=== PATIENT | female | born 1975 | race Caucasian/White ===

== ENCOUNTER 2018-01-14 14:08 | Emergency (ER) | payer BC ==
[2018-01-14 15:02] VITALS: BP 139/99
[2018-01-14] MEDS ORDERED: Ketorolac 60 MG/2 ML SDV IM ONE (15:35)
--- NOTE | 2018-01-14 15:37 | EDM.PDOC ---
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 Happened at home. History of back pain. Onset: Today Onset Date: 01/14/18 Onset Time: 11:00 Duration: Improving Location: Reports: Back Quality: Reports: Dull, Sharp (with movement) Severity: Moderate Improves with: Reports: Rest Worsens with: Reports: Movement Context: Reports: Trauma Associated Symptoms: Reports: No Other Symptoms - Related Data Allergies Allergy/AdvReac Type Severity Reaction Status Date / Time adhesive Allergy Rash Verified 01/14/18 15:08 codeine Allergy Itching Verified 01/14/18 15:12 gabapentin Allergy Edema Verified 01/14/18 15:12 hydromorphone [From Dilaudid] Allergy Itching Verified 01/14/18 15:12 Penicillins Allergy Rash Verified 01/14/18 15:08 pentazocine Allergy Other Verified 01/14/18 15:08 Ohfkahk-Stm-Dil Reductase Allergy Rash Verified 01/14/18 15:08 Inhibitor trimethoprim Allergy Other Verified 01/14/18 15:08 venom-honey bee Allergy Anaphylactic Verified 01/14/18 15:08 [bee venom (honey bee)] Shock atorvastatin AdvReac Muscle Verified 01/14/18 15:08 Weakness simvastatin AdvReac Muscle Verified 01/14/18 15:08 Weakness trichloroacetic acid AdvReac Muscle Verified 01/14/18 15:08 Weakness Home Meds: Home Meds Levothyroxine Sodium 125 mcg PO DAILY 01/24/13 [History] Zolpidem [Ambien] 5 - 10 mg PO DAILY 01/24/13 [History] Ibuprofen 800 mg PO QID 03/18/13 [History] Cholecalciferol (Vitamin D3) [Vitamin D3] 1,000 unit PO BID 05/26/14 [History] Cyanocobalamin (Vitamin B-12) [Vitamin B-12] 1,000 mcg PO DAILY 05/26/14 [ History] Cyclobenzaprine [Flexeril] 10 mg PO TID 05/26/14 [History] EPINEPHrine [Epipen] 0.3 mg IM ASDIRECTED 05/26/14 [History] Levonorgestrel-Ethin Estradiol [Levonor-Eth Estrad 0.15-0.03] 1 each PO DAILY [History] Multivitamin with Minerals [Multiple Vitamin] 1 each PO BID 05/26/14 [History] Vitamin B Complex [B Complex] 1 drp PO BID 05/28/14 [History] Amitriptyline [Elavil] 01/14/18 [History] FLUoxetine [PROzac] 01/14/18 [History] busPIRone [Buspar] 01/14/18 [History] Past Medical History HEENT History: Reports: Impaired Vision Other HEENT History: Dentures Cardiovascular History: Reports: High Cholesterol, Hypertension Respiratory History: Reports: Asthma Genitourinary History: Reports: Renal Calculus WEIGH BOSS History: Reports: Other WEIGH BOSS History: ablation Musculoskeletal History: Reports: Arthritis, Fibromyalgia Psychiatric History: Reports: Depression Endocrine/Metabolic History: Reports: Hypothyroidism Other Dermatologic History: Lipoma removal x 2 - Infectious Disease History Infectious Disease History: Reports: Chicken Pox - Past Surgical History GI Surgical History: Reports: Bariatric Procedure, Hernia Repair/Other Social & Family History - Family History Cardiac: Reports: Blood Clots/VTE/DVT, High Cholesterol, Hypertension, [place] Respiratory: Reports: COPD, Sleep Apnea Musculoskeletal: Reports: Fibromyalgia Neurological: Reports: Migraines Psychiatric: Reports: Anxiety, Depression Endocrine/Metabolic: Reports: Diabetes, type II, Hypothyroidism Oncologic: Reports: Lung, Renal, Thyroid - Tobacco Use Smoking Status *Q: Never Smoker - Living Situation & Occupation Living situation: Reports: Single Occupation: Employed ED ROS GENERAL - Review of Systems Review Of Systems: See Below Constitutional: Reports: No Symptoms HEENT: Reports: No Symptoms Respiratory: Reports: No Symptoms Cardiovascular: Reports: No Symptoms Endocrine: Reports: No Symptoms GI/Abdominal: Reports: No Symptoms Musculoskeletal: Reports: Back Pain Skin: Reports: No Symptoms Neurological: Reports: No Symptoms Psychiatric: Reports: No Symptoms ED EXAM,LOWER BACK PAIN/INJURY - Physical Exam Exam: See Below Exam Limited By: No Limitations General Appearance: Alert, WD/WN, No Apparent Distress Ears: Normal External Exam, Normal Canal, Hearing Grossly Normal, Normal TMs Nose: Normal Inspection, Normal Mucosa, No Blood Throat/Mouth: Normal Inspection, Normal Lips, Normal Teeth, Normal Gums, Normal Oropharynx, Normal Voice, No Airway Compromise Head: Atraumatic, Normocephalic Neck: Normal Inspection, Supple, Non-Tender, Full Range of Motion Respiratory/Chest: No Respiratory Distress, Lungs Clear, Normal Breath Sounds, No Accessory Muscle Use, Chest Non-Tender Cardiovascular: Normal Peripheral Pulses, Regular Rate, Rhythm, No Edema, No Gallop, No JVD, No Murmur, No Rub GI/Abdominal: Normal Bowel Sounds, Soft, Non-Tender, No Organomegaly, No Distention, No Abnormal Bruit, No Mass Back Exam: Normal Inspection, Full Range of Motion, Other (pain with palpation to left lower lumber and SI region) Extremities: Normal Inspection, Normal Range of Motion, Non-Tender, No Pedal Edema, Normal Capillary Refill Neurological: Alert, Normal Mood/Affect, Normal Dorsiflexion, CN II-XII Intact, Normal Plantar Flexion, Normal Gait, Normal Reflexes, No Motor/Sensory Deficits , Oriented x 3 Psychiatric: Tearful Skin Exam: Warm, Dry, Intact, Normal Color, No Rash Course - Vital Signs Last Recorded V/S: Last Vital Signs Temp 97.6 F 01/14/18 15:20 Pulse 103 H 01/14/18 15:20 Resp 17 01/14/18 15:20 BP 139/99 H 01/14/18 15:20 Pulse Ox 96 01/14/18 15:20 - Orders/Labs/Meds Orders: Active Orders 24 hr Category Date Time Status Lumbar Spine 2 or 3V [CR] Stat Exams 01/14/18 15:36 Taken Meds: Medications Discontinued Medications Generic Name Dose Route Start Last Admin Trade Name David PRN Reason Stop Dose Admin Ketorolac Tromethamine 60 mg 01/14/18 15:35 01/14/18 15:44 Toradol IM 01/14/18 15:36 60 mg ONETIME ONE Administration Departure - Departure Time of Disposition: 16:06 Disposition: Home, Self-Care 01 Condition: Good Clinical Impression: Low back pain Qualifiers: Chronicity: acute Back pain laterality: left Sciatica presence: with sciatica Sciatica laterality: sciatica of left side Qualified Code(s): M54.42 - Lumbago with sciatica, left side - Discharge Information *PRESCRIPTION DRUG MONITORING PROGRAM REVIEWED*: Yes *COPY OF PRESCRIPTION DRUG MONITORING REPORT IN PATIENT JOSEY: Yes Instructions: Back Pain, Adult Referrals: Izzy Strauss CNM [Primary Care Provider] - Forms: ED Department Discharge Additional Instructions: To use her Flexeril 10mg three times a day as needed. May use Ibuprofen 800mg TID as needed for pain. Continue ice or heat to area. Gentle stretching. Followup with her back specialist if pain worsening. Pt does have Dilaudid at home she can use if pain not improving. - Problem List & Annotations (1) Low back pain SNOMED Code(s): 204805607 Code(s): M54.5 - LOW BACK PAIN Status: Acute Priority: Medium Current Visit: Yes Qualifiers: Chronicity: acute Back pain laterality: left Sciatica presence: with sciatica Sciatica laterality: sciatica of left side Qualified Code(s): M54.42 - Lumbago with sciatica, left side - My Orders Last 24 Hours: My Active Orders 01/14/18 15:36 Lumbar Spine 2 or 3V [CR] Stat - Assessment/Plan Last 24 Hours: My Active Orders 01/14/18 15:36 Lumbar Spine 2 or 3V [CR] Stat
--- NOTE | 2018-01-15 11:06 | CR ---
Lumbar Spine 2 or 3V CLINICAL HISTORY: Pain, fall FINDINGS: The vertebral body heights are maintained. There are rudimentary ribs the on the lowest rib -bearing vertebrae. There is a transitional lumbosacral segment. IMPRESSION: No fracture or subluxation
== END 2018-01-14 16:19 | disposition home or self-care (01) ==
LOC: JP.ED 14:08
DX: M54.42 Lumbago with sciatica, left side (principal); E78.00 Pure hypercholesterolemia, unspecified; I10 Essential (primary) hypertension; J45.909 Unspecified asthma, uncomplicated; F32.9 Major depressive disorder, single episode, unspecified; E03.9 Hypothyroidism, unspecified; Z88.5 Allergy status to narcotic agent; Z88.0 Allergy status to penicillin; Z79.899 Other long term (current) drug therapy; W01.0XXA Fall on same level from slipping, tripping and stumbling without subsequent striking against object, initial encounter
CPT/HCPCS: 72100; 96372; 99284; J1885

== ENCOUNTER 2018-05-31 09:55 | Emergency (ER) | payer BC ==
[2018-05-31] MEDS ORDERED: Ketorolac 60 MG/2 ML SDV IM ONE (10:19)
[2018-05-31] MEDS ORDERED: LORazepam 1 MG Tab PO ONE (10:19)
--- NOTE | 2018-05-31 10:22 | EDM.PDOC ---
ED HPI GENERAL MEDICAL PROBLEM - General Chief Complaint: Back Pain or Injury Stated Complaint: BACK WENT OUT Time Seen by Provider: 05/31/18 10:16 Source of Information: Reports: Patient, RN Notes Reviewed History Limitations: Reports: No Limitations - History of Present Illness INITIAL COMMENTS - FREE TEXT/NARRATIVE: 42-year-old female presents to the emergency department today with complaint of low back pain, she recently had bent over to pick something up sudden onset of back pain predominately on the left she does have a history of bulging disks status post surgery about one year ago. She denies any loss of bowel or bladder no numbness and tingling in the feet Left Lower Lumbar Pain Score (Numeric/FACES): 5 - Related Data Allergies Allergy/AdvReac Type Severity Reaction Status Date / Time adhesive Allergy Rash Verified 01/14/18 15:08 codeine Allergy Itching Verified 01/14/18 15:12 gabapentin Allergy Edema Verified 01/14/18 15:12 hydromorphone [From Dilaudid] Allergy Itching Verified 01/14/18 15:12 Penicillins Allergy Rash Verified 01/14/18 15:08 pentazocine Allergy Other Verified 01/14/18 15:08 Mxqiglk-Rja-Xsz Reductase Allergy Rash Verified 01/14/18 15:08 Inhibitor trimethoprim Allergy Other Verified 01/14/18 15:08 venom-honey bee Allergy Anaphylactic Verified 01/14/18 15:08 [bee venom (honey bee)] Shock atorvastatin AdvReac Muscle Verified 01/14/18 15:08 Weakness simvastatin AdvReac Muscle Verified 01/14/18 15:08 Weakness trichloroacetic acid AdvReac Muscle Verified 01/14/18 15:08 Weakness Home Meds: Home Meds Levothyroxine Sodium 125 mcg PO DAILY 01/24/13 [History] Zolpidem [Ambien] 5 - 10 mg PO DAILY 01/24/13 [History] Ibuprofen 800 mg PO QID 03/18/13 [History] Cholecalciferol (Vitamin D3) [Vitamin D3] 1,000 unit PO BID 05/26/14 [History] Cyanocobalamin (Vitamin B-12) [Vitamin B-12] 1,000 mcg PO DAILY 05/26/14 [ History] Cyclobenzaprine [Flexeril] 10 mg PO TID 05/26/14 [History] EPINEPHrine [Epipen] 0.3 mg IM ASDIRECTED 05/26/14 [History] Levonorgestrel-Ethin Estradiol [Levonor-Eth Estrad 0.15-0.03] 1 each PO DAILY [History] Multivitamin with Minerals [Multiple Vitamin] 1 each PO BID 05/26/14 [History] Vitamin B Complex [B Complex] 1 drp PO BID 05/28/14 [History] Amitriptyline [Elavil] 01/14/18 [History] FLUoxetine [PROzac] 01/14/18 [History] busPIRone [Buspar] 01/14/18 [History] Past Medical History HEENT History: Reports: Impaired Vision Other HEENT History: Dentures Cardiovascular History: Reports: High Cholesterol, Hypertension Respiratory History: Reports: Asthma Genitourinary History: Reports: Renal Calculus ACCOUNT SUPPORT ASSOCIATE History: Reports: Other ACCOUNT SUPPORT ASSOCIATE History: ablation Musculoskeletal History: Reports: Arthritis, Fibromyalgia Psychiatric History: Reports: Depression Endocrine/Metabolic History: Reports: Hypothyroidism Other Dermatologic History: Lipoma removal x 2 - Infectious Disease History Infectious Disease History: Reports: Chicken Pox - Past Surgical History GI Surgical History: Reports: Bariatric Procedure, Hernia Repair/Other Musculoskeletal Surgical History: Reports: Other (See Below) Other Musculoskeletal Surgeries/Procedures:: back surgery for bulging disc in Social & Family History - Family History Cardiac: Reports: Blood Clots/VTE/DVT, High Cholesterol, Hypertension, [place] Respiratory: Reports: COPD, Sleep Apnea Musculoskeletal: Reports: Fibromyalgia Neurological: Reports: Migraines Psychiatric: Reports: Anxiety, Depression Endocrine/Metabolic: Reports: Diabetes, type II, Hypothyroidism Oncologic: Reports: Lung, Renal, Thyroid - Tobacco Use Smoking Status *Q: Never Smoker - Caffeine Use Caffeine Use: Reports: Coffee - Living Situation & Occupation Living situation: Reports: Single Occupation: Employed ED ROS GENERAL - Review of Systems Review Of Systems: See Below Constitutional: Reports: No Symptoms GI/Abdominal: Reports: No Symptoms Musculoskeletal: Reports: Back Pain Neurological: Denies: Numbness, Tingling ED EXAM,LOWER BACK PAIN/INJURY - Physical Exam Exam: See Below Exam Limited By: No Limitations General Appearance: Alert, WD/WN, No Apparent Distress Respiratory/Chest: No Respiratory Distress Back Exam: Normal Inspection, Decreased Range of Motion, Muscle Spasm, Paraspinal Tenderness. No: CVA Tenderness (R), CVA Tenderness (L), Vertebral Tenderness Extremities: Normal Inspection, Non-Tender, No Pedal Edema, Limited Range of Motion. No: Leg Pain Course - Vital Signs Last Recorded V/S: Last Vital Signs Temp 96.4 F 05/31/18 10:26 Pulse 81 05/31/18 10:26 Resp 17 05/31/18 10:26 BP 152/70 H 05/31/18 10:26 Pulse Ox 99 05/31/18 10:26 - Orders/Labs/Meds Meds: Medications Discontinued Medications Generic Name Dose Route Start Last Admin Trade Name Yogeshq PRN Reason Stop Dose Admin Diphenhydramine HCl 25 mg 05/31/18 12:56 05/31/18 13:05 Benadryl PO 05/31/18 12:57 25 mg ONETIME ONE Administration Fentanyl 50 mcg 05/31/18 10:50 05/31/18 10:57 Sublimaze IM 05/31/18 10:51 50 mcg ONETIME ONE Administration Fentanyl 100 mcg 05/31/18 12:02 05/31/18 12:43 Sublimaze IM 05/31/18 12:03 100 mcg ONETIME ONE Administration Hydromorphone HCl 1 mg 05/31/18 12:56 05/31/18 13:06 Dilaudid IM 05/31/18 12:57 1 mg ONETIME ONE Administration Ketorolac Tromethamine 60 mg 05/31/18 10:19 05/31/18 10:31 Toradol IM 05/31/18 10:20 60 mg ONETIME ONE Administration Lorazepam 1 mg 05/31/18 10:19 05/31/18 10:31 Ativan PO 05/31/18 10:20 1 mg ONETIME ONE Administration Ondansetron HCl 4 mg 05/31/18 13:35 05/31/18 13:40 Zofran Odt PO 05/31/18 13:36 4 mg ONETIME ONE Administration Departure - Departure Time of Disposition: 14:02 Disposition: Home, Self-Care 01 Condition: Fair Clinical Impression: Low back pain Qualifiers: Chronicity: acute Back pain laterality: left Sciatica presence: without sciatica Qualified Code(s): M54.5 - Low back pain - Discharge Information Referrals: Izzy Strauss CNM [Primary Care Provider] - Forms: ED Department Discharge Additional Instructions: use ibuprofen for baseline pain control, use Percocet as needed for breakthrough pain, continue use Flexeril as needed for muscle relaxant, follow- up with your primary care in the next 2-3 days for reevaluation if no improvement - Assessment/Plan Plan: Assessment Acuity = acute on chronic Site and laterality = low back pain Etiology = secondary to lifting injury Manifestations = [none Location of injury = Home Lab values = none Plan Had improvement with Toradol, Ativan, fentanyl, Dilaudid, Benadryl, discharged home with oxycodone 5/325 one tablet by mouth 3 times a day when necessary total #6, Flexeril 10 mg by mouth 3 times a day when necessary total #15 she is to follow-up with regular doctor in 2-3 days if no improvement This note was dictated using [employer] voice recognition software please call with any questions on syntax or grammar.
[2018-05-31 10:25] VITALS: BP 152/70
[2018-05-31] MEDS ORDERED: fentaNYL 100 MCG/2 ML SDV IM ONE ×2 (10:50→12:02)
[2018-05-31] MEDS ORDERED: HYDROmorphone 1 MG/ML Syringe IM ONE (12:56)
[2018-05-31] MEDS ORDERED: diphenhydrAMINE 25 MG Cap PO ONE (12:56)
[2018-05-31] MEDS ORDERED: Ondansetron 4 MG Tab.DIS PO ONE (13:35)
== END 2018-05-31 14:11 | disposition home or self-care (01) ==
LOC: JP.ED 09:55
DX: M54.5 Low back pain (principal); G89.29 Other chronic pain; I10 Essential (primary) hypertension; Z79.899 Other long term (current) drug therapy; Z88.5 Allergy status to narcotic agent; Z88.8 Allergy status to other drugs, medicaments and biological substances; Z91.048 Other nonmedicinal substance allergy status; Z91.030 Bee allergy status
CPT/HCPCS: 96372; 99283; A9270; J1170; J1885; J3010

== ENCOUNTER 2020-03-22 11:10 | Emergency (ER) | payer OTHER, BC ==
--- NOTE | 2020-03-22 11:58 | EDM.PDOC ---
ED HPI GENERAL MEDICAL PROBLEM - General Chief Complaint: Chest Pain Stated Complaint: [facility] Time Seen by Provider: 03/22/20 11:50 Source of Information: Reports: Patient, Family History Limitations: Reports: No Limitations - History of Present Illness INITIAL COMMENTS - FREE TEXT/NARRATIVE: 84-year-old female without looking for a loss 100 today [place] when she developed tightness and heaviness in her chest with shortness of breath and was fully dressed and sweating. Was retrieved by paramedics and given nitroglycerin which relieved the discomfort in her chest. Short of breath with it as well. Notably she has a history of periodic chest pain sometimes heavy sometimes stabbing but not like the elephant on her chest today. This has occurred in termittently for months if not years Currently has been seen by her primary physician here in [place] and has a patch on to measure for arrhythmias because at times she can feel her heart beating irregularly or stop for a beat or 2. Only had some stress test done in [place] but does not have the results. Family history is notable for heart disease involving brothers at a young age with heart disease and bypass and parents and other relatives. Onset: Today, Sudden Duration: Hour(s):, Resolved Prior to Arrival Location: Reports: Chest Quality: Reports: Pressure Severity: Severe Context: Reports: Exercise Associated Symptoms: Reports: Chest Pain, Shortness of Breath Chest Pain Score (Numeric/FACES): 1 - Related Data Allergies Allergy/AdvReac Type Severity Reaction Status Date / Time venom-honey bee Allergy Severe Anaphylactic Verified 03/22/20 11:21 [bee venom (honey bee)] Shock adhesive Allergy Rash Verified 03/22/20 11:21 codeine Allergy Itching Verified 03/22/20 11:21 gabapentin Allergy Edema Verified 03/22/20 11:21 hydromorphone [From Dilaudid] Allergy Itching Verified 03/22/20 11:21 Penicillins Allergy Rash Verified 03/22/20 11:21 pentazocine Allergy Other Verified 03/22/20 11:21 [id number] Reductase Allergy Rash Verified 03/22/20 11:21 Inhibitor trimethoprim Allergy Other Verified 03/22/20 11:21 atorvastatin AdvReac Muscle Verified 03/22/20 11:21 Weakness simvastatin AdvReac Muscle Verified 03/22/20 11:21 Weakness trichloroacetic acid AdvReac Muscle Verified 03/22/20 11:21 Weakness Home Meds: Home Meds Levothyroxine Sodium 125 mcg PO DAILY 01/24/13 [History] Cholecalciferol (Vitamin D3) [Vitamin D3] 1,000 unit PO BID 05/26/14 [History] Cyanocobalamin (Vitamin B-12) [Vitamin B-12] 1,000 mcg PO DAILY 05/26/14 [History] Cyclobenzaprine [Flexeril] 10 mg PO DAILY 05/26/14 [History] EPINEPHrine [Epipen] 0.3 mg IM ASDIRECTED 05/26/14 [History] Multivitamin with Minerals [Multiple Vitamin] 1 each PO DAILY 05/26/14 [History] Vitamin B Complex [B Complex] 1 tab PO BID 05/28/14 [History] busPIRone [Buspar] 10 mg PO BID 01/14/18 [History] Cetirizine HCl [All Day Allergy] 10 mg PO DAILY 03/17/20 [History] Copper Gluconate [Copper] 2 mg PO Q48H 03/17/20 [History] Diclofenac Sodium [Voltaren 1% Gel] 1 applic TOP ASDIRECTED 03/17/20 [History] Hydrocortisone Acetate [Anusol-Hc] 1 applic RECTAL ASDIRECTED PRN 03/17/20 [History] Magnesium Oxide 400 mg PO BID 03/17/20 [History] Meclizine [Antivert] 25 mg PO ASDIRECTED PRN 03/17/20 [History] Montelukast [Singulair] 10 mg PO DAILY 03/17/20 [History] Potassium Gluconate [Potassium] 99 mg PO BID 03/17/20 [History] Pregabalin [Lyrica] 25 mg PO .6X/DAY 03/17/20 [History] lisinopriL [Lisinopril] 20 mg PO DAILY 03/17/20 [History] FLUoxetine [PROzac] 10 mg PO DAILY 03/18/20 [History] Vitamin A 10,000 unit PO DAILY 03/18/20 [History] Past Medical History HEENT History: Reports: Impaired Vision Other HEENT History: Dentures Cardiovascular History: Reports: High Cholesterol, Hypertension Respiratory History: Reports: Asthma Genitourinary History: Reports: Renal Calculus DEAN OF FACULTY History: Reports: Other DEAN OF FACULTY History: ablation Musculoskeletal History: Reports: Arthritis, Fibromyalgia Psychiatric History: Reports: Depression Endocrine/Metabolic History: Reports: Hypothyroidism Other Dermatologic History: Lipoma removal x 2 - Infectious Disease History Infectious Disease History: Reports: Chicken Pox - Past Surgical History GI Surgical History: Reports: Bariatric Procedure, Hernia Repair/Other Musculoskeletal Surgical History: Reports: Other (See Below) Other Musculoskeletal Surgeries/Procedures:: back surgery for bulging disc in Social & Family History - Family History Cardiac: Reports: Blood Clots/VTE/DVT, High Cholesterol, Hypertension, [place] Respiratory: Reports: COPD, Sleep Apnea Musculoskeletal: Reports: Fibromyalgia Neurological: Reports: Migraines Psychiatric: Reports: Anxiety, Depression Endocrine/Metabolic: Reports: Diabetes, type II, Hypothyroidism Oncologic: Reports: Lung, Renal, Thyroid - Tobacco Use Tobacco Use Status *Q: Former Tobacco User Used Tobacco, but Quit: Yes Month/Year Tobacco Last Used: 2008 - Caffeine Use Caffeine Use: Reports: Energy Drinks - Living Situation & Occupation Living situation: Reports: Single Occupation: Employed ED ROS GENERAL - Review of Systems Review Of Systems: See Below Constitutional: Reports: Diaphoresis HEENT: Reports: No Symptoms Respiratory: Reports: Shortness of Breath Cardiovascular: Reports: Chest Pain, Dyspnea on Exertion, Palpitations Endocrine: Reports: No Symptoms GI/Abdominal: Reports: No Symptoms : Reports: No Symptoms Musculoskeletal: Reports: No Symptoms Skin: Reports: No Symptoms Neurological: Reports: No Symptoms Psychiatric: Reports: No Symptoms Hematologic/Lymphatic: Reports: No Symptoms Immunologic: Reports: No Symptoms ED EXAM, GENERAL - Physical Exam Exam: See Below Free Text/Narrative:: Cooperative female in no acute distress with normal vital signs here in the emergency department. Head exam is unremarkable. Neck is supple chest clear regular rate and rhythm with no abnormal sounds heard. No tenderness on chest compression. Abdomen is soft with active bowel sounds nontender skin extremities are normal and no focal neurologic findings present. Course - Vital Signs Text/Narrative:: Patient with heaviness in her chest today like an elephant sitting on her chest with a history of intermittent chest pain for months if not years and a extensive family history of heart disease with bypass surgery and stenting and of an early age has a normal exam at the moment with relief of chest pain and nitroglycerin. Expectation is that she will likely get a work-up here and possibly a angiogram at [facility] if possible in the not too distant future Her laboratory tests are basically negative a negative troponin. Myocardial perfusion scan done on March 18 there was negative with ejection fraction of 65% Spoke with Dr. Puckett on-call tableau lead in [place] at about 2:40 PM. He agrees that angiography would be indicated on a patient with a severe family history of ischemic heart disease and the history that she describes. He recommends baby aspirin, atorvastatin which she says she cannot take because she gets all red and allergic to it secondary to taking it historically for high lipids, Toprol 25 mg twice daily and nitroglycerin as needed. He will then call and set up an appointment for possible outpatient scheduled angiography And asymptomatic since being in the department. Last Recorded V/S: Last Vital Signs Temp 35.7 C L 03/22/20 11:11 Pulse 88 03/22/20 13:05 Resp 16 03/22/20 13:05 BP 140/95 H 03/22/20 13:05 Pulse Ox 97 03/22/20 13:05 - Orders/Labs/Meds Orders: Active Orders 24 hr Category Date Time Status EKG Documentation Completion [RC] STAT Care 03/22/20 12:45 Active EKG 12 Lead [EK] Routine Ther 03/22/20 12:45 Ordered Labs: Laboratory Tests 03/22/20 03/22/20 03/22/20 Range/Units 12:28 12:28 12:28 WBC 9.3 (4.5-11.0) K/uL RBC 4.55 (3.30-5.50) M/uL Hgb 13.6 (12.0-15.0) g/dL Hct 41.7 (36.0-48.0) % MCV 92 (80-98) fL MCH 30 (27-31) pg MCHC 33 (32-36) % Plt Count 280 (150-400) K/uL PT 10.7 (9.5-12.0) sec INR 0.98 (0.80-1.20) D-Dimer, Quantitative 345.00 (0.0-500.0) ng/mL ABG Hemoglobin (12.0-16.0) g/dL ABG Oxyhemoglobin % ABG Carboxyhemoglobin (0.0-1.6) % ABG Methemoglobin % VBG pH (7.350-7.450) VBG pCO2 mm/Hg VBG pO2 mm/Hg VBG HCO3 mmol/L VBG Total CO2 mmol/L VBG O2 Saturation VBG O2 Content %vol VBG Base Excess mm/L O2 Delivery Device Sodium (140-148) mmol/L Potassium (3.6-5.2) mmol/L Chloride (100-108) mmol/L Carbon Dioxide (21-32) mmol/L Anion Gap (5.0-14.0) mmol/L BUN (7-18) mg/dL Creatinine (0.6-1.0) mg/dL Est Cr Clr Drug Dosing mL/min Estimated GFR (MDRD) (>60) Glucose (74-106) mg/dL Calcium (8.5-10.1) mg/dL Total Bilirubin (0.2-1.0) mg/dL AST (15-37) U/L ALT (12-78) U/L Alkaline Phosphatase (46-116) U/L Troponin I (0.000-0.056) ng/mL Total Protein (6.4-8.2) g/dL Albumin (3.4-5.0) g/dL Globulin (2.3-3.5) g/dL Albumin/Globulin Ratio (1.2-2.2) 03/22/20 03/22/20 Range/Units 12:28 12:28 WBC (4.5-11.0) K/uL RBC (3.30-5.50) M/uL Hgb (12.0-15.0) g/dL Hct (36.0-48.0) % MCV (80-98) fL MCH (27-31) pg MCHC (32-36) % Plt Count (150-400) K/uL PT (9.5-12.0) sec INR (0.80-1.20) D-Dimer, Quantitative (0.0-500.0) ng/mL ABG Hemoglobin 14.0 (12.0-16.0) g/dL ABG Oxyhemoglobin 40.9 % ABG Carboxyhemoglobin 1.8 H (0.0-1.6) % ABG Methemoglobin 1.3 % VBG pH 7.404 (7.350-7.450) VBG pCO2 46.0 mm/Hg VBG pO2 24.4 mm/Hg VBG HCO3 28.1 mmol/L VBG Total CO2 25.2 mmol/L VBG O2 Saturation 42.2 VBG O2 Content 8.0 %vol VBG Base Excess 3.2 mm/L O2 Delivery Device Room air Sodium 141 (140-148) mmol/L Potassium 4.5 (3.6-5.2) mmol/L Chloride 103 (100-108) mmol/L Carbon Dioxide 30 (21-32) mmol/L Anion Gap 8.3 (5.0-14.0) mmol/L BUN 12 (7-18) mg/dL Creatinine 0.7 (0.6-1.0) mg/dL Est Cr Clr Drug Dosing 83.07 mL/min Estimated GFR (MDRD) > 60 (>60) Glucose 112 H (74-106) mg/dL Calcium 9.2 (8.5-10.1) mg/dL Total Bilirubin 0.4 (0.2-1.0) mg/dL AST 22 (15-37) U/L ALT 36 (12-78) U/L Alkaline Phosphatase 145 H (46-116) U/L Troponin I < 0.017 (0.000-0.056) ng/mL Total Protein 7.1 (6.4-8.2) g/dL Albumin 3.7 (3.4-5.0) g/dL Globulin 3.4 (2.3-3.5) g/dL Albumin/Globulin Ratio 1.1 L (1.2-2.2) Departure - Departure Time of Disposition: 14:58 Disposition: Home, Self-Care 01 Condition: Good Clinical Impression: Chest pain due to coronary artery disease Referrals: Cayetano Anton NP [Primary Care Provider] - Forms: ED Department Discharge Additional Instructions: Follow-up with the centrifugal extractor operator in [place] in the next couple of days and take baby aspirin Metformin 25 mg twice daily and nitroglycerin as necessary Sepsis Event Note (ED) - Evaluation Sepsis Screening Result: No Definite Risk - Focused Exam Vital Signs: Vital Signs Temp Pulse Resp BP Pulse Ox 03/22/20 13:05 88 16 140/95 H 97 03/22/20 12:36 91 19 125/84 97 03/22/20 12:05 100 22 H 142/93 H 97 03/22/20 11:35 96 20 124/80 96 03/22/20 11:11 35.7 C L 90 16 132/85 99 - My Orders Last 24 Hours: My Active Orders 03/22/20 12:45 EKG Documentation Completion [RC] STAT EKG 12 Lead [EK] Routine - Assessment/Plan Last 24 Hours: My Active Orders 03/22/20 12:45 EKG Documentation Completion [RC] STAT EKG 12 Lead [EK] Routine
[2020-03-22 13:40] VITALS: BP 140/95; PULSE 88
--- NOTE | 2020-03-22 14:01 | CR ---
CHEST: Portable 03/22/2020 at 12:40 PM CLINICAL HISTORY:Chest pain COMPARISON:None FINDINGS: The heart size, pulmonary vascularity and hilar structures are normal. No infiltrate effusion or pneumothorax is seen. IMPRESSION: No acute cardiopulmonary process.
== END 2020-03-22 15:02 | disposition home or self-care (01) ==
LOC: JP.ED 11:10
DX: I25.10 Atherosclerotic heart disease of native coronary artery without angina pectoris (principal); R07.9 Chest pain, unspecified; I10 Essential (primary) hypertension; J45.909 Unspecified asthma, uncomplicated; F32.9 Major depressive disorder, single episode, unspecified; E03.9 Hypothyroidism, unspecified; Z91.030 Bee allergy status; Z88.5 Allergy status to narcotic agent; Z88.8 Allergy status to other drugs, medicaments and biological substances; Z91.048 Other nonmedicinal substance allergy status; Z88.0 Allergy status to penicillin; Z88.6 Allergy status to analgesic agent; Z91.09 Other allergy status, other than to drugs and biological substances; Z88.2 Allergy status to sulfonamides; Z79.899 Other long term (current) drug therapy
CPT/HCPCS: 36415; 71045; 71045-26; 80053; 82803; 84484; 85027; 85379; 85610; 93005; 93010; 99285-25

== ENCOUNTER 2022-01-24 17:46 | Emergency (ER) | payer BC ==
[2022-01-24] MEDS: Aspirin 81 MG Tab.Chew PO ONE (18:05)
[2022-01-24] MEDS: Sodium Chloride 0.9% 10 ML Syringe FLUSH PRN (18:08)
[2022-01-24] MEDS: Nitroglycerin 0.4 MG Tab.SL SL ONE (18:08)
[2022-01-24 19:43] VITALS: BP 130/85; PULSE 81
== END 2022-01-24 20:46 | disposition home or self-care (01) ==
LOC: JP.ED 17:46
DX: R07.89 Other chest pain (principal); I77.811 Abdominal aortic ectasia; E78.00 Pure hypercholesterolemia, unspecified; I10 Essential (primary) hypertension; E03.9 Hypothyroidism, unspecified; F17.200 Nicotine dependence, unspecified, uncomplicated; Z20.822 Contact with and (suspected) exposure to COVID-19; Z91.013 Allergy to seafood; Z88.0 Allergy status to penicillin; Z88.1 Allergy status to other antibiotic agents; Z88.5 Allergy status to narcotic agent; Z88.8 Allergy status to other drugs, medicaments and biological substances; Z79.899 Other long term (current) drug therapy
CPT/HCPCS: 36415; 71045; 71045-26; 80048; 84484; 85025; 85610; 85730; 93005; 99285; A9270-GY; J3490; U0002

== ENCOUNTER 2022-03-10 22:40 | Emergency (ER) | payer BC, OTHER ==
[2022-03-10 22:54] VITALS: BP 138/88; PULSE 76
[2022-03-10] MEDS ORDERED: Sodium Chloride 0.9% 10 ML Syringe FLUSH PRN (23:24)
[2022-03-10] MEDS ORDERED: Iopamidol 612 MG/ML 100 ML Bottle IV PRN (23:27)
[2022-03-10] MEDS ORDERED: Sodium Chloride 0.9% 50 ML IV SCH (23:30)
[2022-03-10 23:54] LABS: ESTIMATED GFR 107 mL/min (>60)
[2022-03-11] MEDS ORDERED: Aluminum Hydroxide/Magnesium Hydroxide/Simethicone Susp 30 ML Cup PO STA (00:46)
== END 2022-03-11 01:07 | disposition home or self-care (01) ==
LOC: JP.ED 22:40
DX: R74.01 Elevation of levels of liver transaminase levels (principal); R14.3 Flatulence; I10 Essential (primary) hypertension; Z91.030 Bee allergy status; Z91.048 Other nonmedicinal substance allergy status; Z88.1 Allergy status to other antibiotic agents; Z88.5 Allergy status to narcotic agent; Z88.8 Allergy status to other drugs, medicaments and biological substances; Z88.6 Allergy status to analgesic agent; Z88.0 Allergy status to penicillin; Z79.899 Other long term (current) drug therapy
CPT/HCPCS: 36415; 74177; 80053; 83690; 85025; 99284; A9270; J3490; Q9967

== ENCOUNTER 2022-04-24 05:04 | Emergency (ER) | payer OTHER, BC ==
[2022-04-24 05:24] VITALS: BP 138/81; PULSE 80
[2022-04-24] MEDS ORDERED: Doxycycline 100 MG Cap PO ONE (05:40)
== END 2022-04-24 05:47 | disposition home or self-care (01) ==
LOC: JP.ED 05:04
DX: H69.83 Other specified disorders of Eustachian tube, bilateral (principal); H66.012 Acute suppurative otitis media with spontaneous rupture of ear drum, left ear; J06.9 Acute upper respiratory infection, unspecified; I10 Essential (primary) hypertension; E78.00 Pure hypercholesterolemia, unspecified; E03.9 Hypothyroidism, unspecified; Z88.0 Allergy status to penicillin; Z88.8 Allergy status to other drugs, medicaments and biological substances; Z79.899 Other long term (current) drug therapy; Z87.891 Personal history of nicotine dependence
CPT/HCPCS: 99282; A9270

== ENCOUNTER 2022-07-11 18:09 | Emergency (ER) | payer OTHER, BC ==
[2022-07-11 18:22] VITALS: BP 165/90; PULSE 61
[2022-07-11] MEDS ORDERED: Bupivacaine 0.5% 10 ML SDV INJECT ONE (18:43)
[2022-07-11] MEDS ORDERED: Ketorolac 30 MG/ML SDV IM ONE (18:43)
[2022-07-11] MEDS ORDERED: Triamcinolone Acetonide 40 MG/ML 1 ML SDV INJECT PRN (18:43)
== END 2022-07-11 19:26 | disposition home or self-care (01) ==
LOC: JP.ED 18:09
DX: M70.62 Trochanteric bursitis, left hip (principal); G89.29 Other chronic pain; M54.50 Low back pain, unspecified; I10 Essential (primary) hypertension; J45.909 Unspecified asthma, uncomplicated; M19.90 Unspecified osteoarthritis, unspecified site; E03.9 Hypothyroidism, unspecified; Z91.030 Bee allergy status; Z88.1 Allergy status to other antibiotic agents; Z88.5 Allergy status to narcotic agent; Z88.8 Allergy status to other drugs, medicaments and biological substances; Z91.048 Other nonmedicinal substance allergy status; Z79.899 Other long term (current) drug therapy
CPT/HCPCS: 96372; 99283; J1885; J3301; J3490

== ENCOUNTER 2023-02-18 05:09 | Emergency (ER) | payer OTHER, BC ==
[2023-02-18 05:52] VITALS: BP 118/72; PULSE 79
== END 2023-02-18 06:25 | disposition home or self-care (01) ==
LOC: JP.ED 05:09
DX: S90.32XA Contusion of left foot, initial encounter (principal); M70.62 Trochanteric bursitis, left hip; I10 Essential (primary) hypertension; J45.909 Unspecified asthma, uncomplicated; Z88.3 Allergy status to other anti-infective agents; Z91.030 Bee allergy status; Z88.5 Allergy status to narcotic agent; Z88.0 Allergy status to penicillin; Z88.8 Allergy status to other drugs, medicaments and biological substances; Z91.09 Other allergy status, other than to drugs and biological substances; X58.XXXA Exposure to other specified factors, initial encounter
CPT/HCPCS: 73630-26-LT; 73630-LT; 99283

== ENCOUNTER 2024-02-11 06:49 | Emergency (ER) | payer OTHER, BC ==
[2024-02-11 07:59] LABS: BASOPHILS ABSOLUTE AUTO 0.06 K/uL (0.00-0.10); EOSINOPHILS ABSOLUTE AUTO 0.14 K/uL (0.00-0.40); EOSINOPHILS PERCENT AUTO 2.4 % (0.0-5.4); HEMATOCRIT 39.9 % (34.3-46.0); HEMOGLOBIN 13.5 g/dL (11.2-15.5); IMMATURE GRAN ABSOLUTE AUTO 0.03 K/uL (0.00-0.23); IMMATURE GRAN PERCENT AUTO 0.5 % (0.0-0.7); LYMPHOCYTES ABSOLUTE AUTO 1.75 K/uL (0.8-3.3); LYMPHOCYTES PERCENT AUTO 30.3 % (11.4-47.7); MEAN CORPUSCULAR HEMOGLOBIN 31.5 pg (31.6-35.5); MEAN CORPUSCULAR HGB CONC 33.8 g/dL (31.6-35.5); MEAN CORPUSCULAR VOLUME 93.2 fL (81.4-99.0); MONOCYTES ABSOLUTE AUTO 0.33 K/uL (0.20-0.90); MONOCYTES PERCENT AUTO 5.7 % (3.3-12.6); NEUTROPHILS ABSOLUTE AUTO 3.46 K/uL (1.0-7.6); NEUTROPHILS PERCENT AUTO 60.1 % (40.0-78.1); PLATELET COUNT,PLT 223 K/uL (130-375); RED BLOOD CELL COUNT 4.28 M/uL (3.77-5.24); WHITE BLOOD CELL COUNT,WBC 5.8 K/uL (3.2-11.0)
[2024-02-11] MEDS: Ketorolac 30 MG/ML SDV IM ONE (08:04)
[2024-02-11 08:07] LABS: APPEARANCE,URINE CLEAR (CLEAR); BILIRUBIN,URINE NEGATIVE (NEGATIVE); COLOR,URINE YELLOW (YELLOW); GLUCOSE,URINE NEGATIVE (NEGATIVE); KETONES,URINE NEGATIVE (NEGATIVE); LEUKOCYTE ESTERASE,URINE NEGATIVE (NEGATIVE); NITRITE,URINE NEGATIVE (NEGATIVE); OCCULT BLOOD,URINE NEGATIVE (NEGATIVE); PH,URINE 7.5 (5.0-8.0); PROTEIN,URINE NEGATIVE (NEGATIVE); UROBILINOGEN,URINE 0.2 EU/dL (0.2-1.0)
[2024-02-11 08:12] LABS: AMORPHOUS SEDIMENT,URINE NOT SEEN; BACTERIA,URINE NOT SEEN; EPITHELIAL CELLS,URINE NOT SEEN; MUCUS,URINE NOT SEEN; RBC,URINE NOT SEEN (0-5); WBC,URINE NOT SEEN (0-5)
[2024-02-11 08:19] LABS: ALANINE AMINOTRANSFERASE,ALT 33 U/L (12-78); ALBUMIN 3.6 g/dL (3.4-5.0); ALKALINE PHOSPHATASE 112 U/L (46-116); ANION GAP 7.9 mmol/L (5.0-14.0); ASPARTATE AMNIOTRANSFERASE,AST 25 U/L (15-37); BILIRUBIN TOTAL 0.5 mg/dL (0.2-1.0); BLOOD UREA NITROGEN,BUN 10 mg/dL (7-18); CALCIUM 9.5 mg/dL (8.5-10.1); CARBON DIOXIDE,CO2 29 mmol/L (21-32); CHLORIDE,CL 105 mmol/L (100-108); CREATININE 0.7 mg/dL (0.6-1.0); EST CRCL DRUG DOSING (CG) 79.54 mL/min; ESTIMATED GFR 105 mL/min (>60); GLUCOSE RANDOM 149 mg/dL (74-106); POTASSIUM,K 4.3 mmol/L (3.6-5.2); PROTEIN TOTAL,TP 7.1 g/dL (6.4-8.2); SODIUM,NA 142 mmol/L (140-148)
[2024-02-11 09:41] VITALS: BP 143/87; PULSE 74
[2024-02-11] MEDS: Acetaminophen/oxyCODONE 325-5 MG Tab PO ONE (10:04)
[2024-02-11] MEDS: diphenhydrAMINE 25 MG Cap PO ONE (10:05)
== END 2024-02-11 12:12 | disposition home or self-care (01) ==
LOC: JP.ED 06:49
DX: M25.552 Pain in left hip (principal); M54.32 Sciatica, left side; I10 Essential (primary) hypertension; E03.9 Hypothyroidism, unspecified; Z86.16 Personal history of COVID-19; Z79.890 Hormone replacement therapy; Z79.899 Other long term (current) drug therapy; Z88.0 Allergy status to penicillin; Z88.1 Allergy status to other antibiotic agents; Z88.2 Allergy status to sulfonamides; Z88.8 Allergy status to other drugs, medicaments and biological substances; Z88.5 Allergy status to narcotic agent; Z91.030 Bee allergy status
CPT/HCPCS: 36415; 72148; 80053; 81001; 85025; 96372; 99284; A9270; J1885

== ENCOUNTER 2024-10-12 19:48 | Inpatient (IN) | payer OTHER, BC ==
[2024-10-12] MEDS: HYDROmorphone 0.5 MG/0.5 ML Syringe IVPUSH ONE ×2 (20:36→22:44)
[2024-10-12 20:39] LABS: BASOPHILS ABSOLUTE AUTO 0.06 K/uL (0.00-0.10); BASOPHILS PERCENT AUTO 0.8 % (0.1-1.3); EOSINOPHILS ABSOLUTE AUTO 0.22 K/uL (0.00-0.40); EOSINOPHILS PERCENT AUTO 3.1 % (0.0-5.4); HEMATOCRIT 42.6 % (34.3-46.0); HEMOGLOBIN 14.2 g/dL (11.2-15.5); IMMATURE GRAN ABSOLUTE AUTO 0.03 K/uL (0.00-0.23); IMMATURE GRAN PERCENT AUTO 0.4 % (0.0-0.7); LYMPHOCYTES ABSOLUTE AUTO 2.08 K/uL (0.8-3.3); LYMPHOCYTES PERCENT AUTO 29.4 % (11.4-47.7); MEAN CORPUSCULAR HEMOGLOBIN 32.1 pg (31.6-35.5); MEAN CORPUSCULAR HGB CONC 33.3 g/dL (31.6-35.5); MEAN CORPUSCULAR VOLUME 96.2 fL (81.4-99.0); MONOCYTES ABSOLUTE AUTO 0.64 K/uL (0.20-0.90); NEUTROPHILS ABSOLUTE AUTO 4.05 K/uL (1.0-7.6); NEUTROPHILS PERCENT AUTO 57.3 % (40.0-78.1); PLATELET COUNT,PLT 248 K/uL (130-375); RED BLOOD CELL COUNT 4.43 M/uL (3.77-5.24); WHITE BLOOD CELL COUNT,WBC 7.1 K/uL (3.2-11.0)
[2024-10-12 21:00] LABS: ALANINE AMINOTRANSFERASE,ALT 41 U/L (12-78); ALBUMIN 3.7 g/dL (3.4-5.0); ALKALINE PHOSPHATASE 115 U/L (46-116); ANION GAP 10.2 mmol/L (5.0-14.0); ASPARTATE AMNIOTRANSFERASE,AST 25 U/L (15-37); BILIRUBIN TOTAL 0.4 mg/dL (0.2-1.0); BLOOD UREA NITROGEN,BUN 19 mg/dL (7-18); CALCIUM 9.5 mg/dL (8.5-10.1); CARBON DIOXIDE,CO2 29 mmol/L (21-32); CHLORIDE,CL 103 mmol/L (100-108); CREATININE 0.7 mg/dL (0.6-1.0); EST CRCL DRUG DOSING (CG) 76.04 mL/min; ESTIMATED GFR 105 mL/min (>60); GLUCOSE RANDOM 89 mg/dL (74-106); POTASSIUM,K 4.2 mmol/L (3.6-5.2); PROTEIN TOTAL,TP 7.5 g/dL (6.4-8.2); SODIUM,NA 138 mmol/L (140-148)
[2024-10-12] MEDS: Sodium Chloride 0.9% 1,000 ML IV SCH (21:25)
[2024-10-12] MEDS: Sodium Chloride 0.9% 10 ML Syringe FLUSH ONE (21:26)
[2024-10-12] MEDS: Iopamidol 612 MG/ML 100 ML Bottle IV ONE (22:11)
[2024-10-12] MEDS: Sodium Chloride 0.9% 100 ML IV ONE (22:11)
[2024-10-13] MEDS ORDERED: HYDROmorphone 1 MG/ML Syringe IVPUSH PRN (00:09)
[2024-10-13] MEDS ORDERED: Melatonin 3 MG Tab PO PRN (00:09)
[2024-10-13] MEDS ORDERED: Ondansetron 4 MG/2 ML SDV IV PRN (00:09)
[2024-10-13] MEDS: HYDROmorphone 1 MG/ML Syringe IVPUSH PRN (01:01)
[2024-10-13] MEDS: Sodium Chloride 0.9% 1,000 ML IV SCH (01:01)
[2024-10-13] MEDS ORDERED: Albuterol 6.7 GM Inhaler INH PRN (01:28)
[2024-10-13] MEDS: diphenhydrAMINE 50 MG/ML SDV IVPUSH PRN (02:33)
[2024-10-13] MEDS: Pregabalin 75 MG Cap PO SCH (02:33)
[2024-10-13 05:49] LABS: HEMATOCRIT 39.8 % (34.3-46.0); HEMOGLOBIN 13.2 g/dL (11.2-15.5); MEAN CORPUSCULAR HEMOGLOBIN 32.4 pg (31.6-35.5); MEAN CORPUSCULAR HGB CONC 33.2 g/dL (31.6-35.5); MEAN CORPUSCULAR VOLUME 97.8 fL (81.4-99.0); RED BLOOD CELL COUNT 4.07 M/uL (3.77-5.24); WHITE BLOOD CELL COUNT,WBC 6.7 K/uL (3.2-11.0)
[2024-10-13 06:06] LABS: CALCIUM 8.8 mg/dL (8.5-10.1); CREATININE 0.6 mg/dL (0.6-1.0); EST CRCL DRUG DOSING (CG) 88.72 mL/min; POTASSIUM,K 4.5 mmol/L (3.6-5.2)
[2024-10-13 06:19] LABS: ANION GAP 10.5 mmol/L (5.0-14.0)
[2024-10-13] MEDS ORDERED: fentaNYL 250 MCG/5 ML SDV ONE (06:38)
[2024-10-13] MEDS ORDERED: Rocuronium 50 MG/5 ML Vial ONE (06:39)
[2024-10-13] MEDS ORDERED: Succinylcholine 200 MG/10 ML MDV ONE ×2 (06:39→07:22)
[2024-10-13] MEDS ORDERED: Neostigmine Methylsulfate 10 MG/10 ML MDV ONE (06:39)
[2024-10-13] MEDS ORDERED: Propofol 200 MG/20 ML SDV ONE (06:39)
[2024-10-13] MEDS ORDERED: Glycopyrrolate 0.2 MG/ML 5 ML MDV ONE (06:39)
[2024-10-13] MEDS ORDERED: Dexamethasone 4 MG/ML SDV ONE (06:39)
[2024-10-13] MEDS ORDERED: Ondansetron 4 MG/2 ML SDV ONE (06:39)
[2024-10-13] MEDS ORDERED: Indocyanine Green 25 MG SDV ONE (06:43)
[2024-10-13] MEDS: Albuterol/Ipratropium 3.0-0.5 MG/3 ML Neb Soln NEB ONE (06:45)
[2024-10-13] MEDS: Clindamycin in 0.9 % Sod Chlor 600 MG in Premix Bag 1 BAG IV ONE (07:09)
[2024-10-13] MEDS ORDERED: Scopalamine 1mg/3day Transdermal Patch ONE ×2 (07:19→08:12)
[2024-10-13] MEDS: Albuterol/Ipratropium 3.0-0.5 MG/3 ML Neb Soln ONE (07:22)
[2024-10-13] MEDS: Ropivacaine 30 ML, dexAMETHasone 8 MG, EPINEPHrine 0.4 MG, Sodium Chloride 0.9% 47.6 ML NERVRT SCH (07:29)
[2024-10-13] MEDS: Bupivacaine 0.5%/EPINEPHrine 1:200,000 50 ML MDV ONE (07:36)
[2024-10-13] MEDS ORDERED: Lactated Ringers 1,000 ML ONE (08:04)
[2024-10-13] MEDS ORDERED: Acetaminophen/HYDROcodone 325-5 MG Tab PO PRN (08:39)
[2024-10-13] MEDS ORDERED: Benzocaine/Cetylpyridinium/Menthol Lozenge MUCMEM PRN (08:39)
[2024-10-13] MEDS ORDERED: hydrOXYzine HCL 100 MG/2 ML SDV IM PRN (08:39)
[2024-10-13] MEDS ORDERED: FLUoxetine 10 MG Cap PO SCH (09:00)
[2024-10-13] MEDS ORDERED: DEXTROAMPHETAMINE PO SCH (09:00)
[2024-10-13] MEDS ORDERED: busPIRone 10 MG Tab PO SCH (09:00)
[2024-10-13] MEDS ORDERED: AMPHETAMINE PO SCH (09:00)
[2024-10-13] MEDS: Pantoprazole 40 MG Tab.CR PO SCH (09:20)
[2024-10-13] MEDS: Vitamin B Complex Tab PO SCH (09:20)
[2024-10-13] MEDS: FLUoxetine 20 MG Cap PO SCH (09:20)
[2024-10-13] MEDS: Magnesium Oxide 400 MG Tab PO SCH (09:21)
[2024-10-13] MEDS: Enoxaparin 40 MG/0.4 ML Syringe SUBCUT SCH (09:21)
[2024-10-13] MEDS: Cholecalciferol (Vitamin D3) 25 MCG Tab PO SCH (09:21)
[2024-10-13] MEDS: Levothyroxine 88 MCG Tab PO SCH (09:21)
[2024-10-13] MEDS: Cetirizine 10 MG Tab PO SCH (09:21)
[2024-10-13] MEDS: Acetaminophen 325 MG Tab PO PRN (09:39)
[2024-10-13] MEDS ORDERED: FLUoxetine 20 MG Cap PO SCH (10:00)
[2024-10-13] MEDS: Amphetamine/Dextroamphetamine Salts 10 MG Cap.ER PO SCH (10:37)
[2024-10-13] MEDS: busPIRone 10 MG Tab PO SCH (10:37)
[2024-10-13] MEDS: Sennosides/Docusate Sodium 50-8.6 MG Tab PO PRN (17:02)
[2024-10-13] MEDS: Bisacodyl 5 MG Tab PO PRN (17:05)
[2024-10-13] MEDS: Cyclobenzaprine 10 MG Tab PO SCH (20:42)
[2024-10-13] MEDS: traZODone 50 MG Tab PO SCH (20:43)
[2024-10-14 05:53] LABS: BASOPHILS ABSOLUTE AUTO 0.03 K/uL (0.00-0.10); BASOPHILS PERCENT AUTO 0.4 % (0.1-1.3); EOSINOPHILS ABSOLUTE AUTO 0.07 K/uL (0.00-0.40); EOSINOPHILS PERCENT AUTO 0.9 % (0.0-5.4); HEMOGLOBIN 11.1 g/dL (11.2-15.5); IMMATURE GRAN PERCENT AUTO 0.3 % (0.0-0.7); LYMPHOCYTES ABSOLUTE AUTO 1.89 K/uL (0.8-3.3); LYMPHOCYTES PERCENT AUTO 24.7 % (11.4-47.7); MEAN CORPUSCULAR HEMOGLOBIN 32.2 pg (31.6-35.5); MEAN CORPUSCULAR HGB CONC 32.6 g/dL (31.6-35.5); MEAN CORPUSCULAR VOLUME 98.6 fL (81.4-99.0); MONOCYTES PERCENT AUTO 9.2 % (3.3-12.6); NEUTROPHILS ABSOLUTE AUTO 4.93 K/uL (1.0-7.6); NEUTROPHILS PERCENT AUTO 64.5 % (40.0-78.1); PLATELET COUNT,PLT 175 K/uL (130-375); RED BLOOD CELL COUNT 3.45 M/uL (3.77-5.24); WHITE BLOOD CELL COUNT,WBC 7.6 K/uL (3.2-11.0)
[2024-10-14] MEDS: traMADol 50 MG Tab PO PRN (05:56)
[2024-10-14 05:57] LABS: IMMATURE GRAN ABSOLUTE AUTO 0.02 K/uL (0.00-0.23)
[2024-10-14 06:06] LABS: CALCIUM 8.6 mg/dL (8.5-10.1); CREATININE 0.6 mg/dL (0.6-1.0); EST CRCL DRUG DOSING (CG) 88.72 mL/min
[2024-10-14] MEDS: FLUoxetine 20 MG Cap PO SCH (08:14)
[2024-10-14] MEDS: Magnesium Hydroxide 400 MG/5 ML Susp 30 ML Cup PO PRN ×2 (08:54→15:19)
[2024-10-14] MEDS: Docusate Sodium 100 MG Cap PO PRN (08:57)
[2024-10-14] MEDS: Ondansetron 4 MG Tab.DIS PO PRN (15:20)
[2024-10-15] MEDS: Bisacodyl 10 MG Supp RECTAL PRN (08:44)
[2024-10-15] MEDS: Mineral Oil 133 ML BOTTLE RECTAL ONE (10:43)
[2024-10-15] MEDS: Magnesium Citrate Solution 296 ML Bottle PO ONE (11:55)
[2024-10-15] MEDS: Lactulose Soln 10 GM/15 ML 15 ML UD Cup PO ONE (17:35)
[2024-10-15] MEDS: Polyethylene Glycol 3350 Powder 17 GM Packet PO ONE (17:35)
[2024-10-16 05:44] LABS: HEMATOCRIT 40.8 % (34.3-46.0); HEMOGLOBIN 13.5 g/dL (11.2-15.5); MEAN CORPUSCULAR HEMOGLOBIN 32.4 pg (31.6-35.5); MEAN CORPUSCULAR HGB CONC 33.1 g/dL (31.6-35.5); MEAN CORPUSCULAR VOLUME 97.8 fL (81.4-99.0); RED BLOOD CELL COUNT 4.17 M/uL (3.77-5.24); WHITE BLOOD CELL COUNT,WBC 6.2 K/uL (3.2-11.0)
[2024-10-16] MEDS: Psyllium Husk Powder Sugar Free 5.85 GM Packet PO SCH (08:03)
[2024-10-16] MEDS: Mineral Oil 133 ML BOTTLE RECTAL ONE (10:18)
[2024-10-16 11:08] VITALS: BP 134/85; PULSE 81
[2024-10-16] MEDS: Na Phos,M-B/Na Phos,DI-B 60 ML, Mineral Oil 50 ML, Docusate Sodium 400 MG, Magnesium Ci... RECTAL ONE (13:57)
== END 2024-10-16 15:42 | disposition home or self-care (01) | DRG 358 ==
LOC: JP.ED 19:48 → JP.ICU 23:39 → OBSVTOIN 10-13 16:23
PROVIDERS: ADMIT Registered Nurse; ATTEND Internal Medicine
PROC: 0DQV4ZZ Repair Mesentery, Percutaneous Endoscopic Approach (ICD-10-PCS; principal; 2024-10-13 06:30)
DX: K46.9 Unspecified abdominal hernia without obstruction or gangrene (principal); H54.7 Unspecified visual loss; E78.00 Pure hypercholesterolemia, unspecified; J45.909 Unspecified asthma, uncomplicated; N20.0 Calculus of kidney; M19.90 Unspecified osteoarthritis, unspecified site; F90.9 Attention-deficit hyperactivity disorder, unspecified type; M79.7 Fibromyalgia; F32.A Depression, unspecified; F43.10 Post-traumatic stress disorder, unspecified; E03.9 Hypothyroidism, unspecified; Z86.16 Personal history of COVID-19; Z90.49 Acquired absence of other specified parts of digestive tract; Z88.8 Allergy status to other drugs, medicaments and biological substances; Z88.0 Allergy status to penicillin; Z98.890 Other specified postprocedural states; Z90.710 Acquired absence of both cervix and uterus; Z79.899 Other long term (current) drug therapy; Z87.891 Personal history of nicotine dependence
CPT/HCPCS: 36415; 74019; 74177; 80048; 80053; 83605; 83690; 85025; 85027; 94640; 96361; 96372; 96374; 96375; 96376; 99222; 99232; 99239; 99285-25; A9270-GY; G0378; J0171; J0330; J0737; J1100; J1171; J1200; J1596; J1650; J2405; J2704; J2710; J2795; J3010; J3490; J7030; J7120; Q0162; Q9967